=== PATIENT | female | born 1985 | race African-American/Black ===

== ENCOUNTER 2018-05-24 04:20 | Emergency (ER) | payer OTHER ==
--- NOTE | 2018-05-24 04:51 | PDOC ---
History of Present Illness - General Chief Complaint: Sore Throat Stated Complaint: ALLERGIC REACTION Time Seen by Provider: 05/24/18 04:37 History Source: Patient - History of Present Illness Initial Comments: 05/24/18 05:47 32-year-old female complaining of throat pain for the last 2 days with chills at home. Patient reports she is having difficulty swallowing and symptoms are worsening over the last 2 days. Denies nausea, vomiting, abdominal pain, diarrhea, fever. Denies sick contact Past History - Past Medical History Allergies/Adverse Reactions: Allergies Allergy/AdvReac Type Severity Reaction Status Date / Time No Known Allergies Allergy Verified 05/24/18 04:57 Review of Systems - Review of Systems Able to Perform ROS?: Yes Is the patient limited Barbadian proficient: No Constitutional: Yes: Chills HEENTM: Yes: Throat Pain. No: Symptoms Reported, See HPI, Eye Pain, Blurred Vision, Tearing, Recent change in vision, Double Vision, Cataracts, Ear Pain, Ocular Prothesis, Ear Discharge, Nose Pain, Nose Congestion, Tinnitus, Nose Bleeding, Hearing Loss, Throat Swelling, Mouth Pain, Dental Problems, Difficulty Swallowing, Mouth Swelling, Other Respiratory: No: Symptoms reported, See HPI, Cough, Orthopnea, Shortness of Breath, SOB with Exertion, SOB at Rest, Stridor, Wheezing, Productive cough, Hemoptysis, Other *Physical Exam - Physical Exam HEENT: positive: Tonsillar Exudate (edema bilateral. No kissing tonsil uvula midlin), Tonsillar Erythema Neck: positive: Lymphadenopathy (R), Lymphadenopathy (L) Respiratory/Chest: positive: Lungs Clear, Normal Breath Sounds Cardiovascular: positive: Tachycardia Gastrointestinal/Abdominal: positive: Normal Bowel Sounds, Soft Extremity: positive: Normal Capillary Refill, Normal Inspection, Normal Range of Motion Integumentary: positive: Normal Color, Dry, Warm Neurologic: positive: Fully Oriented, Alert, Normal Mood/Affect Progress Note - Progress Note Progress Note: strep pharyngitis P : P: Pain control Decadron Bicillin Rapid strep *DC/Admit/Observation/Transfer Diagnosis at time of Disposition: Strep pharyngitis - Discharge Dispostion Disposition: HOME Condition at time of disposition: Fair - Referrals Referrals: Tara Steinberg MD [Primary Care Provider] - Call tomorrow - Patient Instructions Printed Discharge Instructions: Strep Throat Additional Instructions: Gargle with warm salty water Take ibuprofen every 6 hours as needed for pain and fever Take Tylenol every 4-6 hours as needed for fever and pain Throw away your toothbrush in 2-3 days Follow up with you doctor as soon as possible. Additional Instructions: * Please call your personal physician to report your Emergency Department visit and to report your progress, if any. * If there is no improvement in symptoms in 2 days call your physician. * Return to the Emergency Department for any worsening symptoms. - Post Discharge Activity Forms/Work/School Notes: Back to Work
[2018-05-24] MEDS ORDERED: DEXAMETHASONE 4 MG TABLET (FP) PO ONE (05:00)
[2018-05-24] MEDS ORDERED: DEXAMETHASONE SOD PHOSPHATE 10 MG/1 ML VIAL ONE (05:08)
[2018-05-24] MEDS ORDERED: IBUPROFEN 100 MG/5 ML UNIT DOSE CUPS PO ONE (05:47)
[2018-05-24] MEDS ORDERED: PENICILLIN G BENZATHINE 1,200,000 UNIT/2 ML PFS IM ONE ×2 (05:47→06:12)
[2018-05-24] MEDS ORDERED: IBUPROFEN 100 MG/5 ML UNIT DOSE CUPS ONE (06:11)
[2018-05-24 06:24] VITALS: BMI 25.3
[2018-05-24 06:45] VITALS: BP 143/86; PULSE 89; TEMP 98.4
== END 2018-05-24 06:45 | disposition home or self-care (01) ==
LOC: JER 04:20
DX: J02.0 Streptococcal pharyngitis (principal); B95.0 Streptococcus, group A, as the cause of diseases classified elsewhere
CPT/HCPCS: 87880; 99281-25